=== PATIENT | female | born 1955 ===

== ENCOUNTER → 2019-07-06 | Outpatient (CLI) | payer OTHER ==
[~2019-07-06] MED LIST: ASPI81EC PO; ESCI10 PO; EXEM25; FLONASE ALLERG9.9 ML; LISI20; TAMO10 PO; ZOLP10 PO
== END | disposition home or self-care (01) ==
LOC: PLD 13:26 → LAB SHORT 13:26
DX: D48.5 Neoplasm of uncertain behavior of skin (principal)
CPT/HCPCS: 88305

== ENCOUNTER → 2020-01-18 | Outpatient (CLI) | payer OTHER | END | disposition home or self-care (01) | LOC: LAB SHORT 15:41 → PLD 15:41 | DX: N90.4 Leukoplakia of vulva (principal) | CPT/HCPCS: 88305; 88312 ==

== ENCOUNTER → 2023-02-28 | Outpatient (CLI) | payer MEDICARE | LOC: LAB 12:38 → LAB SHORT 12:38 | DX: L08.0 Pyoderma (principal) | CPT/HCPCS: 87070; 87205 ==